=== PATIENT | female | born 1985 | race Caucasian/White ===

== ENCOUNTER 2016-10-11 01:40 | Inpatient (IN) | payer OTHER ==
[~2016-10-11] VITALS: Ht 152.4 cm; Wt 77.1 kg
[~2016-10-11 01:40] MED LIST: IBUP-974 PO; PREN-385 PO
[2016-10-11 02:06] VITALS: BP 144/94
[2016-10-11] MEDS ORDERED: OXYTOCIN 20 UNITS/LR PREMIX 1,000 ML IV SCH (02:10)
[2016-10-11] MEDS ORDERED: PROMETHAZINE 25 MG/ML VIAL IVP PRN (02:10)
[2016-10-11] MEDS ORDERED: OXYTOCIN 10 UNITS/ML VIAL IM SCH (02:10)
[2016-10-11] MEDS ORDERED: NALBUPHINE HYDROCHLORIDE 10 MG/ML VIAL IVP PRN (02:10)
[2016-10-11] MEDS ORDERED: LACTATED RINGERS 500 ML IV ONE (02:10)
[2016-10-11] MEDS ORDERED: MISOPROSTOL 25 MCG TAB VG PRN (02:15)
[2016-10-11 02:52] LABS: BASOPHILS # (AUTO) 0.1 K/uL (0.00-0.22); BASOPHILS % (AUTO) 0.7 % (0.0-2.0); EOSINOPHILS # (AUTO) 0.3 K/uL (0-0.4); EOSINOPHILS % (AUTO) 2.8 % (0.0-4.0); HEMOGLOBIN 12.5 g/dL (12.0-16.0); LYMPHOCYTES # (AUTO) 2.1 K/uL (2.5-16.5); LYMPHOCYTES % (AUTO) 23.2 % (20.5-51.1); MEAN CORPUSCULAR HEMOGLOBIN 29 pg (27-31); MEAN CORPUSCULAR HGB CONC 32 g/dL (33-37); MEAN CORPUSCULAR VOLUME 89 fL (80-94); MONOCYTES # (AUTO) 0.4 K/uL (0.8-1.0); MONOCYTES % (AUTO) 4.8 % (1.7-9.3); NEUTROPHILS # (AUTO) 6.1 K/uL (1.8-7.7); NEUTROPHILS % (AUTO) 68.5 % (42.2-75.2); PLATELET COUNT (AUTO) 157 K/uL (140-450); RED BLOOD CELL COUNT(AUTO) 4.36 MIL/uL (4.20-5.40); RED CELL DISTRIBUTION WIDTH 16.7 % (11.6-13.7)
[2016-10-11 02:53] LABS: APPEARANCE,URINE SL CLOUDY (CLEAR); BILIRUBIN,URINE NEGATIVE (NEGATIVE); BLOOD, URINE NEGATIVE (NEGATIVE); COLOR,URINE YELLOW (YELLOW); LEUKOCYTE ESTERASE ,URINE TRACE (NEGATIVE); NITRITE, URINE NEGATIVE (NEGATIVE); PH,URINE 6.5 (5.0-9.0); PROTEIN,URINE NEGATIVE (NEGATIVE); UGLUCOSE NEGATIVE (NEGATIVE); UROBILINOGEN,URINE 0.2 EU/dL (0.2 - 1)
[2016-10-11 03:00] LABS: BACTERIA,URINE 2+ /HPF (None Seen); RBC,URINE 0-3 /HPF (0-5); SQUAMOUS EPITHELIAL CELL,UR 40-60 /LPF (0-3 (FEW)); WBC,URINE 0-3 /HPF (0-5)
[2016-10-11] MEDS ORDERED: OXYTOCIN 20 UNITS/LR PREMIX 1,000 ML IV ONE (04:01)
[2016-10-11] MEDS: LACTATED RINGERS 1,000 ML IV SCH ×2 (04:06→11:34)
[2016-10-11] MEDS ORDERED: METHYLERGONOVINE 0.2 MG/ML AMP IM PRN ×2 (08:00→14:55)
[2016-10-11] MEDS ORDERED: PROMETHAZINE 25 MG/ML VIAL IM PRN (08:00)
[2016-10-11] MEDS ORDERED: NALBUPHINE 10 MG/ML AMP IVP PRN (08:00)
[2016-10-11] MEDS ORDERED: NALBUPHINE HYDROCHLORIDE 10 MG/ML VIAL ONE (13:04)
[2016-10-11] MEDS ORDERED: PROMETHAZINE 25 MG/ML VIAL ONE (13:05)
[2016-10-11] MEDS ORDERED: OXYTOCIN 10 UNITS/ML VIAL ONE (14:34)
[2016-10-11] MEDS ORDERED: LIDOCAINE 1% 0 ML ONE (14:34)
[2016-10-11] MEDS ORDERED: NALOXONE 0.4 MG/ML VIAL ONE (14:39)
[2016-10-11] MEDS ORDERED: BENZOCAINE/MENTHOL 20%-0.5% 60 GM CAN TP PRN (14:55)
[2016-10-11] MEDS ORDERED: WITCH HAZEL 40 PAD PACKAGE TP PRN (14:55)
[2016-10-11] MEDS ORDERED: OXYTOCIN 10 UNITS/ML VIAL IM PRN (14:55)
[2016-10-11] MEDS ORDERED: IBUPROFEN 800 MG TAB PO PRN (14:55)
[2016-10-11] MEDS ORDERED: TEMAZEPAM 15 MG CAP PO PRN (14:55)
[2016-10-11] MEDS ORDERED: MEASLES, MUMPS, AND RUBELLA 1 VIAL SQVAC PRN (14:55)
[2016-10-11] MEDS ORDERED: oxyCODONE/APAP 5/325 MG 1 TAB TAB PO PRN (14:55)
[2016-10-11] MEDS ORDERED: HYDROcodone/APAP 5/325 MG 1 TAB TAB PO PRN (14:55)
[2016-10-11] MEDS ORDERED: METHYLERGONOVINE 0.2 MG/ML AMP ONE (15:41)
[2016-10-11] MEDS ORDERED: AMMONIA AROMATIC 1 INHL INH ONE (16:29)
[2016-10-11] MEDS ORDERED: CARBOPROST 250 MCG/ML AMP IM ONE (16:34)
[2016-10-11] MEDS ORDERED: DOCUSATE SOD/SENNA 50/8.6 MG 1 TAB PO SCH (21:00)
--- NOTE | 2016-10-12 06:53 | NUR ---
PATIENT HAS BEEN SCREENED AND CATEGORIZED LOW NUTRITION RISK. PATIENT WILL BE SEEN WITHIN 7 DAYS OF ADMISSION. 10/17/16 CORNELIA HIGGINS MS, RDN
[2016-10-12 07:14] LABS: HEMOGLOBIN 10.1 g/dL (12.0-16.0)
== END 2016-10-12 21:03 | disposition home or self-care (01) | DRG 560 ==
LOC: MLD 01:40 → MFCC 17:35
PROVIDERS: ADMIT Obstetrics & Gynecology; ATTEND Obstetrics & Gynecology
PROC: 10E0XZZ Delivery of Products of Conception, External Approach (ICD-10-PCS; principal; 2016-10-11)
PROC: 10907ZC Drainage of Amniotic Fluid, Therapeutic from Products of Conception, Via Natural or Artificial Opening (ICD-10-PCS; 2016-10-11)
PROC: 3E033VJ Introduction of Other Hormone into Peripheral Vein, Percutaneous Approach (ICD-10-PCS; 2016-10-11)
PROC: 0HQ9XZZ Repair Perineum Skin, External Approach (ICD-10-PCS; 2016-10-11)
DX: O80 Encounter for full-term uncomplicated delivery (principal); Z37.0 Single live birth; O70.0 First degree perineal laceration during delivery; Z3A.39 39 weeks gestation of pregnancy
CPT/HCPCS: 36415; 51702; 59409; 81001; 85018; 85025; 86592; 86886; 86900; 86901; 87086; J2001; J2210; J2300; J2310; J2550; J2590; J3490; J7120